=== PATIENT | male | born 1995 | race Caucasian/White ===

== ENCOUNTER 2017-12-10 10:26 | Emergency (ER) | payer OTHER ==
[2017-12-10] MEDS: ONDANSETRON 4 MG ORAL DISINTEGRATING TAB (Q0162 PER 1MG) PO (11:35)
== END 2017-12-10 11:41 | disposition home or self-care (01) ==
LOC: M ED 10:26
DX: S06.0X9A Concussion with loss of consciousness of unspecified duration, initial encounter (principal); R11.0 Nausea; Y04.8XXA Assault by other bodily force, initial encounter; Y92.89 Other specified places as the place of occurrence of the external cause
CPT/HCPCS: Q0162

== ENCOUNTER 2019-01-10 10:00 | Emergency (ER) | payer OTHER ==
[~2019-01-10] VITALS: Ht 188 cm; Wt 85.9 kg
[~2019-01-10 10:00] MED LIST: ZOFR4TAB14 PO; advil
[2019-01-10] MEDS ORDERED: KETOROLAC 60 MG/2 ML VIAL (J1885) IM ONE (11:15)
[2019-01-10] MEDS ORDERED: ACETAMINOPHEN 325 MG TAB PO ONE (11:15)
[2019-01-10 11:32] LABS: BASO # 0.1 10^3/uL (0.0-0.2); EOS # 0.1 10^3/uL (0.0-0.5); HEMATOCRIT 44.2 % (42.0-52.0); HEMOGLOBIN 15.3 g/dl (13.5-17.5); LYMPH # 1.4 10^3/uL (1.5-5.0); LYMPH % 19.7 % (24.0-44.0); MEAN CORPUSCULAR HEMOGLOBIN 30.9 pg (27.0-33.0); MEAN CORPUSCULAR HGB CONC 34.6 g/dl (32.0-36.5); MEAN CORPUSCULAR VOLUME 89.3 fl (80.0-96.0); MONO # 0.5 10^3/uL (0.0-0.8); MONO % 6.8 % (0.0-5.0); NEUTROPHILS # 4.9 10^3/uL (1.5-8.5); NEUTROPHILS % 70.2 % (36.0-66.0); PLATELET COUNT, AUTOMATED 284 10^3/uL (150-450); RED BLOOD COUNT 4.95 10^6/uL (4.30-6.10)
[2019-01-10 11:33] LABS: APPEARANCE, URINE CLEAR (CLEAR); BACTERIA, URINE AUTO NEGATIVE (NEGATIVE); BILIRUBIN, URINE AUTO NEGATIVE (NEGATIVE); BLOOD, URINE BLOOD 2+ (NEGATIVE); COLOR, URINE YELLOW (YELLOW); GLUCOSE, URINE (UA) AUTO NEGATIVE (NEGATIVE); KETONE, URINE AUTO NEGATIVE (NEGATIVE); LEUKOCYTE ESTERASE, URINE AUTO 1+ (NEGATIVE); MUCUS, URINE SMALL (NEGATIVE); NITRITE, URINE AUTO NEGATIVE (NEGATIVE); PROTEIN, URINE AUTO NEGATIVE (NEGATIVE); RBC, URINE AUTO 95 /HPF (0-3); SQUAMOUS EPITHELIAL CELL UR AU 0 /HPF (0-6); UROBILINOGEN, URINE AUTO 0.2 mg/dL (0.0-2.0); WBC, URINE AUTO 8 /HPF (0-3)
--- NOTE | 2019-01-10 12:20 | REP ---
SCROTAL ULTRASOUND: Real-time sonographic evaluation of scrotum and contents performed. Testicles are normal in size and echotexture, right testicle measuring 4.2 x 1.9 x 2.5 cm and left testicle 4.2 x 2.0 x 2.4 cm. There is no testicular mass or torsion. Blood flow is seen in each testicle with duplex Doppler evaluation. Epididymis is unremarkable bilaterally. IMPRESSION: Negative scrotal ultrasound. Electronically Signed by Good Brandon MD 01/13/2019 09:14 A
[2019-01-10] MEDS ORDERED: MACR100C43 PO (12:54)
[2019-01-10] MEDS ORDERED: KETO10TAB PO (12:56)
[2019-01-10 13:06] VITALS: BP 121/56
== END 2019-01-10 13:07 | disposition home or self-care (01) ==
LOC: M ED 10:00
DX: N39.0 Urinary tract infection, site not specified (principal)
CPT/HCPCS: 76870; 80047; 81001; 85025; 93976; 96372; 99283; J1885